=== PATIENT | male | born 1965 | race Caucasian/White ===

== ENCOUNTER → 2024-05-28 | Outpatient (CLI) | payer OTHER ==
[2024-05-28 10:23] LABS: Basophils # (A) 0.06 X 10*3/uL (0.00-0.10); Eosinophils % (A) 6.6 %; HCT 51.2 % (39.6-50.0); HGB 16.9 g/dL (13.0-17.0); Lymphocytes # (A) 1.48 X 10*3/uL (0.90-5.00); Lymphocytes % (A) 24.4 %; MCH 29.7 pg (27.0-32.0); Mean Platelet Volume 11.2 FL (9.5-12.2); Monocytes # (A) 0.64 X 10*3/uL (0.20-1.00); Monocytes % (A) 10.6 %; NRBC Per 100 WBC 0 X 10*3/uL (0.00-0.01); Neutrophils # (A) 3.45 X 10*3/uL (1.80-7.70); Neutrophils % (A) 56.9 %; Platelet Count 206 X 10*3/uL (140-440); RBC 5.69 X 10*6/uL (4.40-5.60); WBC 6.06 X 10*3/uL (4.50-10.00)
[2024-05-28 10:38] LABS: ALT 29 U/L (10-49); AST 23 U/L (14-35); Albumin 4.3 g/dL (3.8-4.9); Albumin/Globulin Ratio 1.59 Ratio (1.60-3.17); Alkaline Phosphatase 74 U/L (41-126); BUN/Creat Ratio 11.91 Ratio (12.00-20.00); Blood Urea Nitrogen 13.1 mg/dL (9.0-27.0); Calcium 9.5 mg/dL (8.7-10.3); Chloride 104 mmol/L (96-109); Chol/HDL Ratio 3.84 Ratio; Globulin 2.7 g/dL (1.6-3.3); Glucose 109 mg/dL (70-110); LDL Cholesterol,Calculated 139.3 mg/dL (0.0-131.0); Potassium 4.6 mmol/L (3.5-5.5); Sodium 139 mmol/L (135-145); Total Bilirubin 0.5 mg/dL (0.3-1.2)
== END | disposition home or self-care (01) ==
LOC: LABWHC1 07:06
PROVIDERS: ATTEND Internal Medicine
DX: Z00.00 Encounter for general adult medical examination without abnormal findings (principal); Z12.5 Encounter for screening for malignant neoplasm of prostate; Z11.59 Encounter for screening for other viral diseases
CPT/HCPCS: 86803; 80061; 80053; 84443; 85025; 36415; G0103